=== PATIENT | female | born 2000 | race Caucasian/White ===

== ENCOUNTER 2024-03-08 22:42 | Outpatient (CLI) | payer OTHER ==
[2024-03-08 22:05] VITALS: BP 115/67
[2024-03-08] MEDS ORDERED: PRENATAL TABLE1 EAC1 PO (22:46)
[2024-03-08] MEDS ORDERED: RINGERS SOLUTION,LACTATED 1,000 ML IV SCH (23:00)
[2024-03-08 23:13] VITALS: BP 113/60; BP 89/52
[2024-03-09 06:11] VITALS: BP 96/56; O2SAT 97
[2024-03-09 07:59] VITALS: BP 96/56
== END 2024-03-09 09:26 | disposition home or self-care (01) ==
LOC: OBS/DEL 22:42
PROVIDERS: ATTEND Obstetrics & Gynecology
DX: O36.8130 Decreased fetal movements, third trimester, not applicable or unspecified (principal); Z3A.36 36 weeks gestation of pregnancy

== ENCOUNTER 2024-03-24 14:45 | Inpatient (IN) | payer OTHER ==
[~2024-03-24] VITALS: Ht 177.8 cm; Wt 88.9 kg
[~2024-03-24 14:45] MED LIST: PRENATAL TABLE1 EAC1 PO
[2024-03-29 07:55] VITALS: BP 122/76
[2024-03-29] MEDS ORDERED: VALACYCLOVIR500 MG (08:12)
[2024-03-29] MEDS ORDERED: RINGERS SOLUTION,LACTATED 1,000 ML IV SCH (08:15)
[2024-03-29 09:24] LABS: HEMATOCRIT 36.6 % (36.0-45.00); HEMOGLOBIN 12.7 g/dL (12.0-15.00); MEAN CELL VOLUME 98.6 fL (80.00-100.00); MEAN CORPUSCULAR HEMOGLOBIN 34.2 pg (27.00-32.0); MEAN CORPUSCULAR HGB CONC 34.6 g/dl (32.0-36.0); PLATELET COUNT 164 K/uL (150-450); RED BLOOD COUNT 3.71 M/uL (4.00-6.00); RED CELL DISTRIBUTION WIDTH 13.7 % (11.5-14.5)
[2024-03-29 09:52] LABS: INR < 0.93; PARTIAL THROMBOPLASTIN TIME 25.5 SECONDS (22.0-34.0); PROTHROMBIN TIME 9.7 SECONDS (9.0-11.5)
[2024-03-29 09:55] LABS: ALBUMIN 3.3 gm/dL (3.4-5.0); BILIRUBIN TOTAL 0.74 mg/dL (0.3-1.2); CALCIUM 9.4 mg/dL (8.5-10.1); CREATININE SERUM 0.58 mg/dL (0.55-1.02); GFR 126.67; GLOBULINA 3.6 G/DL (2.4-3.5); POTASSIUM 4.39 mEq/L (3.5-5.1); TOTAL PROTEIN 6.9 gm/dL (6.4-8.2)
[2024-03-29] MEDS ORDERED: MORPHINE SULFATE 4 MG/ML CARTRIDGE IV PRN (12:00)
[2024-03-29 12:11] VITALS: BP 134/69
[2024-03-29 15:33] VITALS: BP 110/63
[2024-03-29] MEDS ORDERED: CHLORHEXIDINE GLUCONATE 120 ML BOTTLE TOP SCH ×2 (16:00→17:00)
[2024-03-29] MEDS ORDERED: OXYTOCIN 1,000 ML IV SCH ×2 (16:00→17:00)
[2024-03-29] MEDS ORDERED: IBUprofen 400 MG TABLET PO PRN ×2 (16:00→17:00)
[2024-03-29] MEDS ORDERED: DOCUSATE SODIUM 100MG CAP PO SCH (17:00)
[2024-03-29 19:26] VITALS: BP 115/63
[2024-03-29] MEDS ORDERED: BENZOCAINE/MENTHOL 90 ML BOTTLE TOP PRN (19:30)
[2024-03-30 03:00] VITALS: BP 122/76
[2024-03-30 06:32] LABS: HEMOGLOBIN 10.1 g/dL (12.0-15.00); MEAN CELL VOLUME 97.1 fL (80.00-100.00); MEAN CORPUSCULAR HEMOGLOBIN 35.1 pg (27.00-32.0); MEAN CORPUSCULAR HGB CONC 36.1 g/dl (32.0-36.0); PLATELET COUNT 135 K/uL (150-450); RED BLOOD COUNT 2.89 M/uL (4.00-6.00); RED CELL DISTRIBUTION WIDTH 13.6 % (11.5-14.5)
[2024-03-30] MEDS ORDERED: BENZOCAINE/MENTHOL 90 ML BOTTLE TOP PRN (07:00)
[2024-03-30 08:43] VITALS: BP 130/78
[2024-03-30] MEDS ORDERED: PNV,CALCIUM 72/IRON/FOLIC ACID 1 TAB TABLET PO SCH (09:00)
[2024-03-30 16:48] VITALS: BP 114/72
[2024-03-31 01:38] VITALS: BP 117/70
[2024-03-31 06:24] VITALS: BP 130/79
[2024-03-31 09:35] VITALS: BP 139/84
== END 2024-03-31 14:48 | disposition home or self-care (01) | DRG 807 ==
LOC: LDR 03-29 08:06 → OB/GYN 03-29 08:06 → LDR 03-29 08:19 → OB/GYN 03-29 19:32 → LDR 03-30 14:45 → OB/GYN 03-31 14:48
PROVIDERS: Obstetrics & Gynecology Gynecology; ADMIT Obstetrics & Gynecology; ATTEND Obstetrics & Gynecology
PROC: 10E0XZZ Delivery of Products of Conception, External Approach (ICD-10-PCS; principal; 2024-03-29)
PROC: 0KQM0ZZ Repair Perineum Muscle, Open Approach (ICD-10-PCS; 2024-03-29)
PROC: 4A1HXCZ Monitoring of Products of Conception, Cardiac Rate, External Approach (ICD-10-PCS; 2024-03-29)
DX: O70.1 Second degree perineal laceration during delivery (principal); Z37.0 Single live birth; Z3A.39 39 weeks gestation of pregnancy; Z20.822 Contact with and (suspected) exposure to COVID-19

== ENCOUNTER 2024-03-24 16:18 | Outpatient (CLI) | payer OTHER | END 2024-03-24 16:45 | disposition home or self-care (01) | LOC: NST 16:18 | PROVIDERS: ATTEND Obstetrics & Gynecology Gynecology | DX: Z34.83 Encounter for supervision of other normal pregnancy, third trimester (principal) ==

== ENCOUNTER 2024-03-29 06:49 | Outpatient (CLI) | payer OTHER ==
[2024-03-29] MEDS ORDERED: VALACYCLOVIR500 MG (08:12)
== END 2024-03-29 08:06 | disposition still patient (30) ==
LOC: NST 06:49
PROVIDERS: ATTEND Obstetrics & Gynecology Gynecology
DX: Z34.83 Encounter for supervision of other normal pregnancy, third trimester (principal)